=== PATIENT | male | born 1940 | race Caucasian/White ===

== ENCOUNTER → 2017-07-16 | Outpatient (CLI) | payer MEDICARE | LOC: CFH 13:52 | PROVIDERS: ATTEND Licensed Practical Nurse | DX: R91.1 Solitary pulmonary nodule (principal); Z87.891 Personal history of nicotine dependence | CPT/HCPCS: G0297 ==

== ENCOUNTER → 2018-07-16 | Outpatient (CLI) | payer MEDICARE | END | disposition home or self-care (01) | LOC: CFH 12:36 | PROVIDERS: ATTEND Licensed Practical Nurse | DX: Z12.2 Encounter for screening for malignant neoplasm of respiratory organs (principal); R91.8 Other nonspecific abnormal finding of lung field; I25.10 Atherosclerotic heart disease of native coronary artery without angina pectoris; Z87.891 Personal history of nicotine dependence | CPT/HCPCS: G0297 ==

== ENCOUNTER 2020-11-11 12:30 | Emergency (ER) | payer MEDICARE ==
[~2020-11-11] VITALS: Ht 193 cm; Wt 91.2 kg
[2020-11-11 12:31] VITALS: BP 144/69
--- NOTE | 2020-11-11 13:00 | NUR ---
PT AMBULATED TO ROOM FROM TRIAGE. PT WAS TRYING TO GET DOWN INTO HIS BASEMENT THIS MORNING AND SLIPPED AND INJURED HIS MARTINEZ. HE STATED THAT HE CANNOT GET THE BLEEDING TO STOP. PT DENIES TAKING BLOOD THINNERS OR ASA. DRESSING IN PLACE, SATURATED WITH BLOOD. PT STATED THAT IT IS THE 4TH DRESSING HE HAS PUT ON. PT DENIES ANY OTHER INJURY.
[2020-11-11] MEDS ORDERED: MICROFIBRILLAR COLLAGEN 0.5GM/PACK TP ONE (13:26)
[2020-11-11] MEDS ORDERED: MICROFIBRILLAR COLLAGEN 1 GM TP ONE (13:42)
--- NOTE | 2020-11-11 14:45 | NUR ---
DISCHARGE INSTRUCTIONS REVIEWED WITH PT. ALL QUESTIONS ANSWERED AT THIS TIME.
== END 2020-11-11 14:47 | disposition home or self-care (01) ==
LOC: ED 14:12
DX: S81.811A Laceration without foreign body, right lower leg, initial encounter (principal); S51.811A Laceration without foreign body of right forearm, initial encounter; S50.11XA Contusion of right forearm, initial encounter; W01.0XXA Fall on same level from slipping, tripping and stumbling without subsequent striking against object, initial encounter; Y93.89 Activity, other specified; Y92.009 Unspecified place in unspecified non-institutional (private) residence as the place of occurrence of the external cause; Y99.8 Other external cause status
CPT/HCPCS: 99282